=== PATIENT | female | born 1930 | race African-American/Black ===

== ENCOUNTER 2019-06-02 06:42 | Inpatient (IN) | payer MEDICARE, MEDICAID, OTHER ==
[~2019-06-02] VITALS: Ht 167.6 cm; Wt 99.8 kg
[2019-06-02] MEDS ORDERED: POTA10TA PO (06:57)
[2019-06-02] MEDS ORDERED: CHOL100018 PO (06:57)
[2019-06-02] MEDS ORDERED: HYDR25TA84 PO (06:57)
[2019-06-02] MEDS ORDERED: MORP10DI10 PO (06:57)
[2019-06-02] MEDS ORDERED: ATOR10TA84 PO (06:57)
[2019-06-02] MEDS ORDERED: AMLO10TA7 PO (06:57)
[2019-06-02] MEDS ORDERED: ASPI-556 PO (06:57)
[2019-06-02] MEDS ORDERED: ASCO500 PO (06:57)
[2019-06-02] MEDS ORDERED: SODIUM CHLORIDE 0.9% 1,000 ML IV ONE ×3 (07:12→09:00)
[2019-06-02 07:43] LABS: BASOPHILS % (AUTO) 0.2 % (0.0-2.0); EOSINOPHILS % (AUTO) 0.1 % (1.0-6.0); HEMATOCRIT 50.6 % (36-46); HEMOGLOBIN 15.7 g/dL (12.0-16.0); LYMPHOCYTES # (AUTO) 1.6 K/uL (1.0-4.8); LYMPHOCYTES % (AUTO) 13.6 % (22.0-44.0); MEAN CORPUSCULAR HEMOGLOBIN 29.7 pg (26.0-34.0); MEAN CORPUSCULAR HGB CONC 31.1 G/dL (31.0-37.0); MEAN CORPUSCULAR VOLUME 96 fL (80-100); MONOCYTES # (AUTO) 0.9 K/uL (0.1-1.0); MONOCYTES % (AUTO) 7.5 % (2.0-9.0); NEUTROPHILS # (AUTO) 9.3 K/uL (1.8-7.7); NEUTROPHILS % (AUTO) 78.6 % (40.0-70.0); PLATELET COUNT (AUTO) 262 K/uL (150-450); RED CELL DISTRIBUTION WIDTH 17.1 % (11.5-14.5)
[2019-06-02 07:54] LABS: INR 1.1 (0.9-1.1); PROTHROMBIN TIME 11.2 SEC (9.4-11.6)
[2019-06-02 08:08] LABS: LACTIC ACID 2.8 mmol/L (0.4-2.0)
[2019-06-02 08:12] LABS: ALANINE AMINOTRANSFERASE 20 U/L (12-78); ALBUMIN 2.9 g/dL (3.4-5.0); ALKALINE PHOSPHATASE 126 U/L (46-116); ANION GAP 24 mmol/L (8-16); ASPARTATE AMINOTRANSFERASE 14 U/L (15-37); BILIRUBIN,TOTAL 0.7 mg/dL (0.1-1.0); CALCIUM, TOTAL 10.4 mg/dL (8.8-10.5); CARBON DIOXIDE 19 mmol/L (22-29); CHLORIDE 123 mmol/L (98-107); CREATINE KINASE, TOTAL ONLY 67 U/L (26-192); CREATININE 5.24 mg/dL (0.60-1.30); GLOMERULAR FILTR. RATE CALC 9 mL/min (>60); GLUCOSE,RANDOM 188 mg/dL (70-110); POTASSIUM 3.6 mmol/L (3.5-5.1); TOTAL PROTEIN, SERUM 8.7 g/dL (6.4-8.2)
[2019-06-02 08:13] LABS: APPEARANCE,URINE TURBID (CLEAR); GLUCOSE, URINE (UA) NEGATIVE (NEGATIVE); KETONES,URINE TRACE mg/dL (NEGATIVE); LEUKOCYTE ESTERASE ,URINE LARGE (NEGATIVE); NITRATE,URINE NEGATIVE (NEGATIVE); PROTEIN,URINE SEE CONFIRM (NEGATIVE)
[2019-06-02 08:15] LABS: SODIUM SERUM 166 mmol/L (136-145); UREA NITROGEN, BLOOD 135 mg/dL (7-18)
[2019-06-02 08:20] LABS: BILIRUBIN,URINE PRELIM. POSITIVE (NEGATIVE); OCCULT BLOOD,URINE MODERATE (NEGATIVE)
[2019-06-02 08:21] LABS: BACTERIA,URINE Many /HPF (None Seen); SQUAMOUS EPITHELIAL CELL,UR Moderate /LPF (None Seen); SULFOSALICYLIC ACID,URINE 3+ (Negative); WBC,URINE 26-50 /HPF (0-5)
[2019-06-02 08:30] LABS: INFLUENZA TYPE A NEGATIVE FOR TYPE A (NEGATIVE); INFLUENZA TYPE B NEGATIVE FOR TYPE B (NEGATIVE)
[2019-06-02] MEDS ORDERED: CefTRIAXone 1 GM/DEXTROSE 50 ML IV ONE (08:30)
[2019-06-02] MEDS ORDERED: ACETAMINOPHEN 325 MG TABLET PO PRN (09:00)
[2019-06-02] MEDS ORDERED: ONDANSETRON HCL 4 MG/2 ML VIAL IVP PRN ×2 (09:00→09:45)
[2019-06-02] MEDS ORDERED: ALBUTEROL SULFATE 2.5 MG/0.5 ML NEB SOLUTION NEB PRN (09:45)
[2019-06-02] MEDS ORDERED: MAGNESIUM HYDROXIDE SUSPENSION 30 ML UDCUP PO PRN (09:45)
[2019-06-02] MEDS ORDERED: DOCUSATE SODIUM 100 MG CAPSULE PO PRN (09:45)
[2019-06-02] MEDS ORDERED: SODIUM CHLORIDE 0.45% 1,000 ML IV SCH (09:45)
[2019-06-02] MEDS ORDERED: HydrALAZINE HCL 20 MG/ML VIAL IVP PRN (09:45)
[2019-06-02] MEDS ORDERED: BISACODYL 10 MG RECTAL RECTAL SUPPOSITORY PR PRN (09:45)
[2019-06-02] MEDS ORDERED: 0.9% SODIUM CHLORIDE 10 ML SYRINGE IVP PRN (09:45)
[2019-06-02 10:50] LABS: B-TYPE NATRIURETIC PEPTIDE 180 pg/mL (0-100)
[2019-06-02 11:29] LABS: ABG A-A DIFF O2 469.7 mmHg (10-20.0); ABG BASE EXCESS -7.6 mmol/L (-2.0-3.0); ABG CARBOXYHEMOGLOBIN 0.4 % (0.0-1.5); ABG HCO3 18.6 mmol/L (22.0-26.0); ABG OXYGEN CONTENT 18.2 mL/dL (15.0-23.0); ABG OXYGEN SATURATION 99.3 % (95.0-98.0); ABG OXYHEMOGLOBIN 98.9 % (94.0-100.0); ABG PCO2 42 mmHg (35-45); ABG PH 7.274 (7.35-7.450); ABG TOTAL HEMOGLOBIN 12.8 G/dL (12.0-18.0); PO2, ARTERIAL BG 203.2 mmHg (71.0-79.0); SOURCE, BLOOD GAS ARTERIAL; TEMPERATURE, FAHRENHEIT, BG 96.9 FAHREN (96.0-98.6)
[2019-06-02 11:30] VITALS: BP 128/74
[2019-06-02 11:39] LABS: O2 DEVICE,BLOOD GAS NON REBREATHER (ROOM AIR); SITE, BLOOD GAS RT RADIAL
[2019-06-02] MEDS ORDERED: ALBUTEROL SULFATE 2.5 MG/0.5 ML NEB SOLUTION NEB SCH (12:00)
[2019-06-02] MEDS ORDERED: IPRATROPIUM BROMIDE 0.5 MG/2.5 ML NEB SOLUTION NEB SCH (12:00)
[2019-06-02] MEDS ORDERED: PENTETATE DTPA TC99M/MCL ISOTOPE 1 EA INJ INJ ONE (13:45)
[2019-06-02] MEDS: ALBUTEROL SULFATE 2.5 MG/0.5 ML NEB SOLUTION NEB SCH ×2 (14:00→20:31)
[2019-06-02] MEDS: IPRATROPIUM BROMIDE 0.5 MG/2.5 ML NEB SOLUTION NEB SCH ×2 (14:00→20:31)
[2019-06-02] MEDS ORDERED: MAA ALBUMIN AGGREGATED TC99M/UD<10MCL ISOTOPE 1 EA INJ INJ ONE (14:05)
[2019-06-02 15:38] LABS: CALCIUM, TOTAL 9.1 mg/dL (8.8-10.5); CREATININE 4.71 mg/dL (0.60-1.30); POTASSIUM 3.3 mmol/L (3.5-5.1)
[2019-06-02 16:00] VITALS: BP 107/68
[2019-06-02] MEDS: PIPERACILLIN SODIUM/TAZOBACTAM 2.25 GM in DEXTROSE 5%-WATER 50 ML IV SCH ×2 (16:02→21:53)
[2019-06-02] MEDS ORDERED: DEXTROSE 5%-WATER 1,000 ML IV SCH (16:15)
[2019-06-02 18:43] LABS: APPEARANCE,URINE CLOUDY (CLEAR); GLUCOSE, URINE (UA) NEGATIVE (NEGATIVE); KETONES,URINE NEGATIVE (NEGATIVE); LEUKOCYTE ESTERASE ,URINE MODERATE (NEGATIVE); NITRATE,URINE NEGATIVE (NEGATIVE); OCCULT BLOOD,URINE MODERATE (NEGATIVE); PROTEIN,URINE POS 1+ (NEGATIVE); UROBILINOGEN,URINE 0.2 mg/dL (<=1.0)
[2019-06-02 18:47] LABS: BILIRUBIN,URINE PRELIM. POSITIVE (NEGATIVE); CREATININE,URINE RANDOM 124.4 mg/dL (30.0-125.0); SODIUM,URINE RANDOM 11 mmol/l (20-110); UREA NITROGEN,URINE RANDOM 898 mg/dL (350-1000)
[2019-06-02 18:50] LABS: WBC,URINE 26-50 /HPF (0-5)
[2019-06-02 18:51] LABS: AMORPHOUS SEDIMENT,UR Few /LPF (None Seen); BACTERIA,URINE Moderate /HPF (None Seen); SQUAMOUS EPITHELIAL CELL,UR Moderate /LPF (None Seen)
[2019-06-02 20:00] VITALS: BP 119/62
[2019-06-02 20:39] LABS: CREATININE 4.72 mg/dL (0.60-1.30); POTASSIUM 3.4 mmol/L (3.5-5.1)
[2019-06-02 20:40] LABS: CALCIUM, TOTAL 9.4 mg/dL (8.8-10.5); MAGNESIUM 2.4 mg/dL (1.80-2.40); PHOSPHORUS 3.7 mg/dL (2.5-4.9)
[2019-06-02] MEDS: ATORVASTATIN CALCIUM 10 MG TABLET PO SCH (21:00)
[2019-06-02] MEDS: HEPARIN SODIUM,PORCINE 5,000 UNITS/ML VIAL SQ SCH (21:00)
[2019-06-02] MEDS: CHOLECALCIFEROL (VIT D3) 1,000 UNITS TABLET PO SCH (21:00)
[2019-06-03] VITALS: BP 122/74
[2019-06-03] MEDS: ALBUTEROL SULFATE 2.5 MG/0.5 ML NEB SOLUTION NEB SCH ×4 (01:55→19:52)
[2019-06-03] MEDS: IPRATROPIUM BROMIDE 0.5 MG/2.5 ML NEB SOLUTION NEB SCH ×4 (01:55→19:52)
[2019-06-03 04:00] VITALS: BP 103/73
[2019-06-03] MEDS: DEXTROSE 5%-WATER 1,000 ML IV SCH ×2 (05:16→16:45)
[2019-06-03 05:30] LABS: HEMATOCRIT 36.9 % (36-46); MEAN CORPUSCULAR HEMOGLOBIN 30.9 pg (26.0-34.0); MEAN CORPUSCULAR HGB CONC 33.1 G/dL (31.0-37.0); MEAN CORPUSCULAR VOLUME 93 fL (80-100); PLATELET COUNT (AUTO) 213 K/uL (150-450); RED BLOOD CELL COUNT(AUTO) 3.95 MIL/uL (4.00-5.20); RED CELL DISTRIBUTION WIDTH 16.5 % (11.5-14.5)
[2019-06-03 05:31] LABS: HEMOGLOBIN 12.2 g/dL (12.0-16.0)
[2019-06-03] MEDS: PIPERACILLIN SODIUM/TAZOBACTAM 2.25 GM in DEXTROSE 5%-WATER 50 ML IV SCH ×3 (05:35→22:07)
[2019-06-03 05:43] LABS: LACTIC ACID 1.9 mmol/L (0.4-2.0)
[2019-06-03 05:46] LABS: CREATININE 4.65 mg/dL (0.60-1.30)
[2019-06-03 05:47] LABS: BILIRUBIN,TOTAL 0.6 mg/dL (0.1-1.0); FREE T4 (FREE THYROXINE) 1.4 ng/dL (0.76-1.46); THYROID STIMULATING HORMONE 0.99 uIU/mL (0.36-3.74); TOTAL PROTEIN, SERUM 6.7 g/dL (6.4-8.2)
[2019-06-03 05:58] LABS: CHOL/HDL RATIO 4.2 (3.9-5.7)
[2019-06-03 06:18] LABS: POTASSIUM 2.4 mmol/L (3.5-5.1)
[2019-06-03 06:31] LABS: MAGNESIUM 1.8 mg/dL (1.80-2.40); PHOSPHORUS 2.5 mg/dL (2.5-4.9)
[2019-06-03 08:08] LABS: BAND NEUTROPHILS % (MANUAL) 26 % (0-5); LYMPHOCYTES % (MANUAL) 4 % (22-44); MONOCYTES % (MANUAL) 3 % (2-9); SEGMENTED NEUTROPHILS % 67 % (40-70)
[2019-06-03] MEDS ORDERED: HydrALAZINE HCL 25 MG TABLET PO SCH (09:00)
[2019-06-03] MEDS: PANTOPRAZOLE SODIUM 40 MG DR TABLET PO SCH (09:00)
[2019-06-03] MEDS ORDERED: AmLODIPine BESYLATE 10 MG TABLET PO SCH (09:00)
[2019-06-03] MEDS: CHOLECALCIFEROL (VIT D3) 1,000 UNITS TABLET PO SCH ×2 (09:00→20:24)
[2019-06-03] MEDS: ASCORBIC ACID 500 MG TABLET PO SCH (09:00)
[2019-06-03] MEDS: ASPIRIN 81 MG EC TABLET PO SCH (09:00)
[2019-06-03] MEDS: HEPARIN SODIUM,PORCINE 5,000 UNITS/ML VIAL SQ SCH ×2 (10:37→22:15)
[2019-06-03] MEDS: POTASSIUM CHL 10 MEQ/WATER 50 ML IV SCH ×2 (10:38→11:00)
[2019-06-03 11:41] VITALS: BP 137/60
[2019-06-03] MEDS ORDERED: DEXTROSE 50%-WATER 25 GM/50 ML SYRINGE IVP PRN (11:45)
[2019-06-03 12:00] VITALS: BP 127/67
[2019-06-03] MEDS ORDERED: ACETAMINOPHEN 650 MG RECTAL SUPPOSITORY PR PRN (14:15)
[2019-06-03 14:40] LABS: CALCIUM, TOTAL 8.6 mg/dL (8.8-10.5); CREATININE 4.61 mg/dL (0.60-1.30); POTASSIUM 3.2 mmol/L (3.5-5.1)
[2019-06-03 16:00] VITALS: BP 111/56
[2019-06-03 20:00] VITALS: BP 119/63
[2019-06-03] MEDS: ATORVASTATIN CALCIUM 10 MG TABLET PO SCH ×2 (20:20→20:24)
[2019-06-03 20:57] LABS: CREATININE 4.64 mg/dL (0.60-1.30); POTASSIUM 3.1 mmol/L (3.5-5.1)
[2019-06-04] VITALS: BP 108/62
[2019-06-04] MEDS: INSULIN LISPRO 100 UNITS/ML SQ PRN ×2 (00:48→06:07)
[2019-06-04 00:50] LABS: GLUCOSE,POINT OF CARE 238 MG/DL (70-110)
[2019-06-04 00:51] LABS: GLUCOSE,POINT OF CARE 150 MG/DL (70-110)
[2019-06-04 00:51] LABS: GLUCOSE,POINT OF CARE 253 MG/DL (70-110)
[2019-06-04 00:53] LABS: GLUCOSE,POINT OF CARE 165 MG/DL (70-110)
[2019-06-04] MEDS: IPRATROPIUM BROMIDE 0.5 MG/2.5 ML NEB SOLUTION NEB SCH ×5 (01:39→20:52)
[2019-06-04] MEDS: ALBUTEROL SULFATE 2.5 MG/0.5 ML NEB SOLUTION NEB SCH ×5 (01:39→20:52)
[2019-06-04] MEDS: DEXTROSE 5%-WATER 1,000 ML IV SCH ×2 (03:10→15:21)
[2019-06-04 04:00] VITALS: BP 115/64
[2019-06-04] MEDS: PIPERACILLIN SODIUM/TAZOBACTAM 2.25 GM in DEXTROSE 5%-WATER 50 ML IV SCH ×3 (04:16→20:50)
[2019-06-04 04:58] LABS: CREATININE 4.6 mg/dL (0.60-1.30); MAGNESIUM 1.9 mg/dL (1.80-2.40); PHOSPHORUS 2.6 mg/dL (2.5-4.9)
[2019-06-04 04:59] LABS: POTASSIUM 2.7 mmol/L (3.5-5.1)
[2019-06-04] MEDS: POTASSIUM CHL 10 MEQ/WATER 50 ML IV SCH ×5 (05:21→15:21)
[2019-06-04 05:47] LABS: GLUCOSE,POINT OF CARE 173 MG/DL (70-110)
[2019-06-04 08:00] VITALS: BP 132/66
[2019-06-04] MEDS: HEPARIN SODIUM,PORCINE 5,000 UNITS/ML VIAL SQ SCH ×2 (08:14→20:50)
[2019-06-04] MEDS: ASPIRIN 81 MG EC TABLET PO SCH (08:19)
[2019-06-04] MEDS: CHOLECALCIFEROL (VIT D3) 1,000 UNITS TABLET PO SCH ×2 (08:20→20:50)
[2019-06-04] MEDS: ASCORBIC ACID 500 MG TABLET PO SCH (08:20)
[2019-06-04] MEDS: PANTOPRAZOLE SODIUM 40 MG DR TABLET PO SCH (08:20)
[2019-06-04 09:36] LABS: GLUCOSE,POINT OF CARE 133 MG/DL (70-110)
[2019-06-04 11:26] LABS: CALCIUM, TOTAL 8.8 mg/dL (8.8-10.5); CREATININE 4.47 mg/dL (0.60-1.30)
[2019-06-04 11:29] LABS: POTASSIUM 2.9 mmol/L (3.5-5.1)
[2019-06-04 12:00] VITALS: BP 121/66
[2019-06-04 12:22] LABS: GLUCOSE,POINT OF CARE 129 MG/DL (70-110)
[2019-06-04 12:27] LABS: PHOSPHORUS 2.8 mg/dL (2.5-4.9)
[2019-06-04 16:37] VITALS: BP 134/55
[2019-06-04 16:40] LABS: CREATININE 4.31 mg/dL (0.60-1.30); POTASSIUM 3.6 mmol/L (3.5-5.1)
[2019-06-04 16:44] LABS: GLUCOSE,POINT OF CARE 157 MG/DL (70-110)
[2019-06-04] MEDS: ACETAMINOPHEN 325 MG TABLET PO PRN (16:54)
[2019-06-04 20:00] VITALS: BP 101/53
[2019-06-04] MEDS: IPRATROPIUM BROMIDE 0.5 MG/2.5 ML NEB SOLUTION NEB PRN (20:49)
[2019-06-04] MEDS: ALBUTEROL SULFATE 2.5 MG/0.5 ML NEB SOLUTION NEB PRN (20:49)
[2019-06-04] MEDS: ATORVASTATIN CALCIUM 10 MG TABLET PO SCH (20:50)
[2019-06-05] VITALS: BP 136/73
[2019-06-05] MEDS: INSULIN LISPRO 100 UNITS/ML SQ PRN ×4 (00:27→17:11)
[2019-06-05] MEDS: IPRATROPIUM BROMIDE 0.5 MG/2.5 ML NEB SOLUTION NEB SCH ×4 (02:32→19:35)
[2019-06-05] MEDS: ALBUTEROL SULFATE 2.5 MG/0.5 ML NEB SOLUTION NEB SCH ×4 (02:32→19:35)
[2019-06-05 04:00] VITALS: BP 127/70
[2019-06-05] MEDS: PIPERACILLIN SODIUM/TAZOBACTAM 2.25 GM in DEXTROSE 5%-WATER 50 ML IV SCH ×3 (04:32→21:32)
[2019-06-05] MEDS: DEXTROSE 5%-WATER 1,000 ML IV SCH ×3 (04:33→21:33)
[2019-06-05 05:30] LABS: CALCIUM, TOTAL 8.4 mg/dL (8.8-10.5); CREATININE 3.97 mg/dL (0.60-1.30); MAGNESIUM 1.6 mg/dL (1.80-2.40); PHOSPHORUS 2.5 mg/dL (2.5-4.9)
[2019-06-05 05:35] LABS: POTASSIUM 2.9 mmol/L (3.5-5.1)
[2019-06-05 07:13] LABS: GLUCOSE,POINT OF CARE 235 MG/DL (70-110)
[2019-06-05 07:13] LABS: GLUCOSE,POINT OF CARE 180 MG/DL (70-110)
[2019-06-05] MEDS ORDERED: POTASSIUM CHLORIDE 10% 40 MEQ/30 ML LIQUID UDCUP NG ONE ×2 (07:15→15:45)
[2019-06-05] MEDS: PANTOPRAZOLE SODIUM 40 MG DR TABLET PO SCH (07:27)
[2019-06-05 08:00] VITALS: BP 135/82
[2019-06-05] MEDS: ASPIRIN 81 MG EC TABLET PO SCH (09:47)
[2019-06-05] MEDS: HEPARIN SODIUM,PORCINE 5,000 UNITS/ML VIAL SQ SCH ×2 (09:48→21:35)
[2019-06-05] MEDS: CHOLECALCIFEROL (VIT D3) 1,000 UNITS TABLET PO SCH ×2 (09:48→21:35)
[2019-06-05] MEDS: ASCORBIC ACID 500 MG TABLET PO SCH (09:48)
[2019-06-05] MEDS: ACETAMINOPHEN 325 MG TABLET PO PRN (10:36)
[2019-06-05 13:21] LABS: CALCIUM, TOTAL 8.8 mg/dL (8.8-10.5); CREATININE 3.9 mg/dL (0.60-1.30); POTASSIUM 3.1 mmol/L (3.5-5.1)
[2019-06-05 14:06] LABS: GLUCOSE,POINT OF CARE 218 MG/DL (70-110)
[2019-06-05] MEDS: POTASSIUM CHL 10 MEQ/WATER 50 ML IV SCH ×2 (16:50→18:42)
[2019-06-05 18:46] LABS: GLUCOSE,POINT OF CARE 210 MG/DL (70-110)
[2019-06-05 20:00] VITALS: BP 117/55
[2019-06-05] MEDS: ATORVASTATIN CALCIUM 10 MG TABLET PO SCH (21:35)
[2019-06-06] VITALS (8 sets, daily range): BP systolic 134–154; BP diastolic 67–86
[2019-06-06] MEDS: INSULIN LISPRO 100 UNITS/ML SQ PRN ×3 (00:28→18:18)
[2019-06-06] MEDS: ALBUTEROL SULFATE 2.5 MG/0.5 ML NEB SOLUTION NEB SCH ×4 (02:19→20:06)
[2019-06-06] MEDS: IPRATROPIUM BROMIDE 0.5 MG/2.5 ML NEB SOLUTION NEB SCH ×4 (02:19→20:06)
[2019-06-06 04:17] LABS: GLUCOSE,POINT OF CARE 179 MG/DL (70-110)
[2019-06-06] MEDS: PIPERACILLIN SODIUM/TAZOBACTAM 2.25 GM in DEXTROSE 5%-WATER 50 ML IV SCH ×3 (04:46→20:36)
[2019-06-06 06:28] LABS: CALCIUM, TOTAL 8.9 mg/dL (8.8-10.5); CREATININE 3.43 mg/dL (0.60-1.30); MAGNESIUM 1.5 mg/dL (1.80-2.40); PHOSPHORUS 2.3 mg/dL (2.5-4.9); POTASSIUM 4.3 mmol/L (3.5-5.1)
[2019-06-06 06:45] LABS: GLUCOSE,POINT OF CARE 188 MG/DL (70-110)
[2019-06-06] MEDS: DEXTROSE 5%-WATER 1,000 ML IV SCH (06:48)
[2019-06-06] MEDS ORDERED: MAGNESIUM SULFATE 0.5 GM in DEXTROSE 5%-WATER 50 ML IV ONE (08:30)
[2019-06-06] MEDS: PANTOPRAZOLE SODIUM 40 MG DR TABLET PO SCH (09:00)
[2019-06-06] MEDS: ASPIRIN 81 MG EC TABLET PO SCH (09:33)
[2019-06-06] MEDS: ASCORBIC ACID 500 MG TABLET PO SCH (09:33)
[2019-06-06] MEDS: CHOLECALCIFEROL (VIT D3) 1,000 UNITS TABLET PO SCH ×2 (09:34→20:34)
[2019-06-06] MEDS: HEPARIN SODIUM,PORCINE 5,000 UNITS/ML VIAL SQ SCH ×2 (09:35→20:34)
[2019-06-06] MEDS: ATORVASTATIN CALCIUM 10 MG TABLET PO SCH (20:35)
[2019-06-06] MEDS: ACETAMINOPHEN 325 MG TABLET PO PRN (21:00)
[2019-06-07] VITALS (7 sets, daily range): BP systolic 122–158; BP diastolic 66–89
[2019-06-07] MEDS: INSULIN LISPRO 100 UNITS/ML SQ PRN ×4 (00:29→21:12)
[2019-06-07] MEDS ORDERED: SODIUM CHLORIDE 0.9% 250 ML IV ONE (00:35)
[2019-06-07] MEDS: DEXTROSE 5%-WATER 1,000 ML IV SCH ×2 (00:54→21:06)
[2019-06-07] MEDS: ALBUTEROL SULFATE 2.5 MG/0.5 ML NEB SOLUTION NEB SCH ×4 (01:22→20:31)
[2019-06-07] MEDS: IPRATROPIUM BROMIDE 0.5 MG/2.5 ML NEB SOLUTION NEB SCH ×4 (01:23→20:31)
[2019-06-07 05:25] LABS: CALCIUM, TOTAL 9.2 mg/dL (8.8-10.5); MAGNESIUM 1.8 mg/dL (1.80-2.40); POTASSIUM 3.9 mmol/L (3.5-5.1)
[2019-06-07] MEDS: PIPERACILLIN SODIUM/TAZOBACTAM 2.25 GM in DEXTROSE 5%-WATER 50 ML IV SCH ×3 (05:47→21:00)
[2019-06-07 06:56] LABS: GLUCOSE,POINT OF CARE 150 MG/DL (70-110)
[2019-06-07 06:56] LABS: GLUCOSE,POINT OF CARE 124 MG/DL (70-110)
[2019-06-07 06:56] LABS: GLUCOSE,POINT OF CARE 164 MG/DL (70-110)
[2019-06-07] MEDS: PANTOPRAZOLE SODIUM 40 MG DR TABLET PO SCH (09:00)
[2019-06-07] MEDS: HEPARIN SODIUM,PORCINE 5,000 UNITS/ML VIAL SQ SCH ×2 (09:37→21:00)
[2019-06-07] MEDS: ASCORBIC ACID 500 MG TABLET PO SCH ×2 (09:37→21:13)
[2019-06-07] MEDS: ASPIRIN 81 MG EC TABLET PO SCH (09:37)
[2019-06-07] MEDS: CHOLECALCIFEROL (VIT D3) 1,000 UNITS TABLET PO SCH ×2 (09:38→21:00)
[2019-06-07] MEDS: IPRATROPIUM BROMIDE 0.5 MG/2.5 ML NEB SOLUTION NEB PRN (16:03)
[2019-06-07] MEDS: ALBUTEROL SULFATE 2.5 MG/0.5 ML NEB SOLUTION NEB PRN (16:03)
[2019-06-07] MEDS ORDERED: 0.9% SODIUM CHLORIDE 5 ML NEB SOLUTION NEB ONE (16:10)
[2019-06-07] MEDS ORDERED: LORazepam 2 MG/ML VIAL IVP PRN (18:45)
[2019-06-07] MEDS: ATORVASTATIN CALCIUM 10 MG TABLET PO SCH (21:00)
[2019-06-07] MEDS ORDERED: HydrALAZINE HCL 20 MG/ML VIAL IVP PRN (22:15)
[2019-06-07 22:19] LABS: GLUCOMETER DEV NAME(LOC) 6S.1; GLUCOSE,POINT OF CARE 118 MG/DL (70-110)
[2019-06-07 22:19] LABS: GLUCOMETER DEV NAME(LOC) 6S.1; GLUCOSE,POINT OF CARE 153 MG/DL (70-110)
[2019-06-08] MEDS: ALBUTEROL SULFATE 2.5 MG/0.5 ML NEB SOLUTION NEB SCH ×3 (02:49→13:51)
[2019-06-08] MEDS: IPRATROPIUM BROMIDE 0.5 MG/2.5 ML NEB SOLUTION NEB SCH ×3 (02:49→13:51)
[2019-06-08 04:44] VITALS: BP 119/76
[2019-06-08 07:30] VITALS: BP 127/65
[2019-06-08] MEDS ORDERED: SCOPOLAMINE HYDROBROMIDE 1 MG/72 HOUR PATCH TD SCH ×3 (07:35→09:00)
[2019-06-08] MEDS: PANTOPRAZOLE SODIUM 40 MG DR TABLET PO SCH (08:15)
[2019-06-08] MEDS: ACETAMINOPHEN 325 MG TABLET PO PRN (10:48)
[2019-06-08 11:36] VITALS: BP 124/66
[2019-06-10] MEDS ORDERED: SCOPOLAMINE HYDROBROMIDE 1 MG/72 HOUR PATCH TD SCH (09:00)
== END 2019-06-08 15:40 | disposition home or self-care (01) | DRG 177 ==
LOC: EMS 06:42 → ICU 09:37 → UNDOADMIN 10:51 → 6N 06-07 10:08
PROVIDERS: ADMIT Internal Medicine; ATTEND Internal Medicine
PROC: 05HY33Z Insertion of Infusion Device into Upper Vein, Percutaneous Approach (ICD-10-PCS; principal; 2019-06-04)
PROC: B54MZZA Ultrasonography of Right Upper Extremity Veins, Guidance (ICD-10-PCS; 2019-06-04)
DX: J69.0 Pneumonitis due to inhalation of food and vomit (principal); J96.01 Acute respiratory failure with hypoxia; E43 Unspecified severe protein-calorie malnutrition; E87.0 Hyperosmolality and hypernatremia; N17.9 Acute kidney failure, unspecified; E87.2 Acidosis; I24.8 Other forms of acute ischemic heart disease; N39.0 Urinary tract infection, site not specified; N18.4 Chronic kidney disease, stage 4 (severe); G93.40 Encephalopathy, unspecified; R47.01 Aphasia; E11.22 Type 2 diabetes mellitus with diabetic chronic kidney disease; E86.0 Dehydration; E87.6 Hypokalemia; E78.5 Hyperlipidemia, unspecified; F03.90 Unspecified dementia, unspecified severity, without behavioral disturbance, psychotic disturbance, mood disturbance, and anxiety; D64.9 Anemia, unspecified; I12.9 Hypertensive chronic kidney disease with stage 1 through stage 4 chronic kidney disease, or unspecified chronic kidney disease; R62.7 Adult failure to thrive; I25.10 Atherosclerotic heart disease of native coronary artery without angina pectoris; Z74.01 Bed confinement status; Z95.0 Presence of cardiac pacemaker; Z79.4 Long term (current) use of insulin; Z86.73 Personal history of transient ischemic attack (TIA), and cerebral infarction without residual deficits; Z68.35 Body mass index [BMI] 35.0-35.9, adult; Z90.49 Acquired absence of other specified parts of digestive tract
CPT/HCPCS: 36245; 36569; 36600; 51702; 70450; 76770; 76937; 78582; 82570; 82805; 83605; 83735; 84100; 84145; 84300; 84439; 84443; 84540; 87040; 87081; 87086; 87804; 92526; 92610; 93005; 93306; 94640; 94799; 97161; 99291; A9539; A9540; G0378; J0360; J0696; J1644; J2543; J3475; J3480; J7030; J7050; J7060